=== PATIENT | female | born 1970 | race Asian ===

== ENCOUNTER 2023-10-17 10:12 | Outpatient (CLI) | payer OTHER, SELFPAY | END 2023-10-17 10:13 | disposition home or self-care (01) | PROVIDERS: Visit Provider Obstetrics & Gynecology | DX: Z01.419 Encounter for gynecological examination (general) (routine) without abnormal findings (principal); N92.6 Irregular menstruation, unspecified | CPT/HCPCS: 82670; 83001; 84443 ==

== ENCOUNTER 2023-11-06 12:59 | Outpatient (CLI) | payer OTHER, SELFPAY ==
--- NOTE | 2023-11-06 13:19 | W.ANESCHARGE ---
Anesthesia Charges Start Date/Time Anesthesia Start Date: 11/06/23 Anesthesia Start Time: 13:42 Stop Date/Time Anesthesia Stop Date: 11/06/23 Anesthesia Stop Time: 14:13
--- NOTE | 2023-11-06 14:15 | W.ANESCHARGE ---
Anesthesia Charges Start Date/Time Anesthesia Start Date: 11/06/23 Anesthesia Start Time: 13:42 Stop Date/Time Anesthesia Stop Date: 11/06/23 Anesthesia Stop Time: 14:13
== END 2023-11-06 13:00 | disposition home or self-care (01) ==
LOC: OP CLINIC 13:00
PROVIDERS: Visit Provider Surgery
DX: Z12.11 Encounter for screening for malignant neoplasm of colon (principal); K63.5 Polyp of colon
CPT/HCPCS: 00811; 45385; 88305; J2704

== ENCOUNTER 2023-12-16 14:30 | Outpatient (CLI) | payer OTHER, SELFPAY ==
--- NOTE | 2023-12-16 14:40 | CRLHL7_ITS ---
For Patients: As a result of the Century Cures Act, medical imaging exams and procedure reports are released immediately into your electronic medical record. You may view this report before your referring provider. If you have questions, please contact your health care provider. BILATERAL SCREENING MAMMOGRAM WITH COMPUTER-AIDED DETECTION AND TOMOSYNTHESIS TECHNIQUE: CC and MLO views were obtained. These mammographic images have been obtained using full-field digital technique. These mammographic images were interpreted with the benefit of computer-aided detection. Breast tomosynthesis was used in this interpretation. COMPARISON FILM: No comparison available. FINDINGS: The breasts are extremely dense, which lowers the sensitivity of mammography. IMPRESSION: There is no radiographic evidence for malignancy. ASSESSMENT: BI-RADS Category 2: Benign RECOMMENDATION: Routine screening mammogram in 1 year. A lay language report of this examination will be provided to the patient. JOSE ANTONIO BERNSTEIN M.D. Diagnostic Radiologist [email or web address] Transcribed: 12:[address]/Dictated by: Jose Antonio Bernstein MD @ 12/22/2023 11:13:00 AM (Electronically Signed)
== END 2023-12-16 14:31 | disposition home or self-care (01) ==
LOC: MAMMO 14:31
PROVIDERS: Visit Provider Obstetrics & Gynecology
DX: Z12.31 Encounter for screening mammogram for malignant neoplasm of breast (principal); R92.333 Mammographic heterogeneous density, bilateral breasts
CPT/HCPCS: 77063; 77067

== ENCOUNTER 2024-01-13 09:06 | Outpatient (CLI) | payer OTHER, SELFPAY | END 2024-01-13 09:07 | disposition home or self-care (01) | PROVIDERS: Visit Provider Family Medicine | DX: Z00.00 Encounter for general adult medical examination without abnormal findings (principal); E03.9 Hypothyroidism, unspecified; Z13.6 Encounter for screening for cardiovascular disorders; Z11.59 Encounter for screening for other viral diseases | CPT/HCPCS: 80053; 80061; 86803 ==

== ENCOUNTER 2025-02-04 13:08 | Outpatient (CLI) | payer BC, SELFPAY ==
--- NOTE | 2025-02-04 13:20 | CRLHL7_ITS ---
For Patients: As a result of the Century Cures Act, medical imaging exams and procedure reports are released immediately into your electronic medical record. You may view this report before your referring provider. If you have questions, please contact your health care provider. INDICATION: BILATERAL SCREENING MAMMOGRAM, ASYMPTOMATIC 54 Y/O FEMALE COMPARISON: 12/16/2023 TECHNIQUE: Digital mammogram in CC and MLO projections including computer-aided detection (CAD) and tomosynthesis. BREAST COMPOSITION: The breasts are heterogeneously dense, which may obscure small masses. FINDINGS: No suspicious findings. ASSESSMENT: BI-RADS 1 Negative RECOMMENDATION: Annual screening mammogram. A lay language report of this examination will be provided to the patient. Dictated by: Almaz Cuevas MD @ 02/08/2025 09:07:07 (Electronically Signed)
== END 2025-02-04 13:09 | disposition home or self-care (01) ==
LOC: MAMMO 13:09
PROVIDERS: PCP Family Medicine; Visit Provider Obstetrics & Gynecology
DX: Z12.31 Encounter for screening mammogram for malignant neoplasm of breast (principal); R92.333 Mammographic heterogeneous density, bilateral breasts
CPT/HCPCS: 77063; 77067

== ENCOUNTER 2025-02-21 08:40 | Outpatient (CLI) | payer BC, SELFPAY | END 2025-02-21 08:41 | disposition home or self-care (01) | LOC: NFLDREF 02-25 10:08 | PROVIDERS: PCP Family Medicine; Referring Provider Family Medicine; Visit Provider Family Medicine | DX: Z00.00 Encounter for general adult medical examination without abnormal findings (principal); E03.9 Hypothyroidism, unspecified; N95.1 Menopausal and female climacteric states | CPT/HCPCS: 80053; 80061; 82670; 83001; 83002; 84443 ==